=== PATIENT | female | born 1965 | race African-American/Black ===

== ENCOUNTER 2016-09-07 00:59 | Emergency (ER) | payer MEDICAID ==
[2015-06-11 06:09] VITALS: BMI 31.5
[~2016-09-07 00:59] MED LIST: LISINOPRIL10 MG PO; LOPRESSOR25 MG PO
== END 2016-09-07 02:59 | disposition home or self-care (01) ==
LOC: D.ER 00:59
DX: R10.2 Pelvic and perineal pain (principal); Z86.73 Personal history of transient ischemic attack (TIA), and cerebral infarction without residual deficits; I10 Essential (primary) hypertension

== ENCOUNTER 2016-09-30 16:40 | Observation (INO) | payer MEDICAID ==
[~2016-09-30] VITALS: Ht 170.2 cm; Wt 93.3 kg
[2016-09-30 17:42] LABS: BASOPHILS 0.4 % (0.0-2.0); EOSINOPHILS 0.9 % (0-7); HEMATOCRIT 42.9 % (36.0-48.0); HEMOGLOBIN 14.1 g/dL (12-16); IMMATURE GRANULOCYTES 0.4 % (0-5); LYMPHOCYTES 43.8 % (15-50); MCH 29.8 pg (26.0-34.0); MCHC 32.9 g/dL (31.0-37.0); MCV 90.7 fL (80.0-100.0); MEAN PLATELET VOLUME 9.4 fL (7.4-10.4); MONOCYTES 7.2 % (2-11); NEUTROPHILS 47.3 % (40-80); PLATELET COUNT 247 10x3/uL (130-400); RBC 4.73 10x6/uL (4.00-5.40); RDW 13.7 % (11.5-14.5)
[2016-09-30 18:01] LABS: ALBUMIN 3.6 g/dL (3.4-5.0); ALKALINE PHOSPHATASE 57 U/L (46-116); ALT (SGPT) 26 U/L (10-68); BILIRUBIN - TOTAL 0.28 mg/dL (0.2-1.3); CALC OSMOLALITY 280 mosm/kg (275-300); CALCIUM 9.1 mg/dL (8.5-10.1); CARBON DIOXIDE 29.1 mmol/L (21.0-32.0); CHLORIDE - SERUM 102 mmol/L (98-107); CREATININE - SERUM 1.1 mg/dL (0.6-1.3); GLUCOSE 98 mg/dL (74-106); POTASSIUM - SERUM 3.1 mmol/L (3.5-5.1); PROTEIN - SERUM 7.1 g/dL (6.4-8.2); SODIUM 139 mmol/L (136-145); UREA NITROGEN 20 mg/dL (7-18); eGFR NON AFRICAN AMERICAN 56 mL/min (90-120)
[2016-09-30 18:17] LABS: CHOL - HDL RATIO 2.5 ratio (2.3-4.1); CHOLESTEROL, TOTAL 176 mg/dL (0-200); CKMB 1.1 U/L (0.0-3.6); CREATINE KINASE 152 UL (21-215); HDL CHOLESTEROL 70 mg/dL (32-96); TRIGLYCERIDE 507 mg/dL (30-200)
[2016-09-30 18:18] LABS: TROPONIN-I 0.104 ng/mL (0.000-0.060)
--- NOTE | 2016-09-30 22:30 | NUR ---
RECEIVED FROM ER VIA STRETCHER. ADMITTED TO DR SORENSEN WITH CHEST PAIN. ORIENTED TO ROOM. HER DAUGHTER IS AT BEDSIDE. TELEMETRY APPLIED ON PATIENT.
[2016-10-01 04:07] VITALS: BP 144/98; BMI 32.2
[2016-10-01 06:29] VITALS: BP 93/57
--- NOTE | 2016-10-01 07:30 | NUR ---
RECEIVED PT IN BED AAOX4 RESP UNLABORED DENIES ANY NEEDS OR DISCOMFORT NAD NOTED
[2016-10-01 08:32] VITALS: BP 152/105
[2016-10-01] MEDS ORDERED: LISINOPRIL10 MG PO (09:29)
[2016-10-01] MEDS ORDERED: HYDROCHLOROTHIA25 MG PO (09:29)
--- NOTE | 2016-10-01 10:00 | NUR ---
PT C/O OF PAIN STATES SHE NEEDS SOMETHING FOR PAIN EXPLAINED SHE WAS BEING DISCHARGED AND SHE WOULD HAVE TO STAY FOR 2 HOURS IF PAIN MED GIVEN STATED HER STATED SHE WANTED MORPHINE 4 MG GIVEN SIVP FOR C/O PAIN PT STATED HER DAUGHTER WANTS TO TALK TO DR SORENSEN CALLED [facility] WITH MESSAGE
--- NOTE | 2016-10-01 11:10 | NUR ---
DR SORENSEN HERE WENT TO PT'S ROOM
[2016-10-01 12:09] VITALS: Ht 170.2 cm; Wt 93.3 kg
--- NOTE | 2016-10-01 12:39 | NUR ---
REVIEWED DISCHARGE INSTRUCTIONS WITH PT AND DAUGHTER BOTH STATE UNDERSTANDING COPY GIVEN TO PT SALINE LOCK DCD TO RAC WITH 22 GA IV CATH INTACT PT DISCHARGED HOME IN STABLE CONDITION LEFT UNIT VIA W/C WITH ALL PERSONAL BELONGINGS
[2016-10-01 12:43] VITALS: BP 130/79
--- NOTE | 2016-10-03 10:09 | DS ---
PATIENT:BOWEN MELGAR :65 MEDICAL RECORD: [id number] DISCHARGE SUMMARY ADMISSION DATE: 09/30/16 DISCHARGE DATE: 10/01/16 DISCHARGE DIAGNOSES: 1. Hypertensive crisis. 2. Demand ischemia, cardiac due to hypertension. 3. Essential hypertension. HOSPITAL COURSE: Mrs. Melgar presents with chest pain and out of control hypertension. She has similar admission 1-1/2 years ago with normal cardiac catheterization. She was at that time started on lisinopril, hydrochlorothiazide. She has not been compliant with this. She was restarted on her lisinopril, hydrochlorothiazide. Her blood pressure decreased and was discharged home on this. She will follow up with [facility] in 1 month. TRANSINT:[id number] Voice Confirmation ID: [id number] DOCUMENT ID: [id number] JOSE SORENSEN MD at 1009 CC: [id number] DICTATION DATE: 10/01/16 1125 MUSIC JOURNALIST: 10/02/16 0053 DIS IN 10/01/16 [id number] [place] [address]
--- NOTE | 2016-10-03 10:09 | HP ---
PATIENT: BOWEN MELGAR MEDICAL RECORD: [id number] ACCOUNT: [id number] LOCATION:[address] : 65 ADMISSION DATE: 09/30/16 HISTORY AND PHYSICAL EXAMINATION DIAGNOSIS: Hypertension. HISTORY OF PRESENT ILLNESS: Mrs. Melgar presents with chest pain and hypertension, systolic blood pressure in the 190-200 range. She had a similar admission 1-1/2 years ago. She underwent cardiac catheterization at that time revealing smooth-walled vessels, normal LV function. It was felt to be demand ischemia from hypertension. She was placed on lisinopril and hydrochlorothiazide. She is no longer taking these medications. PHYSICAL EXAMINATION: GENERAL APPEARANCE: Well-nourished, well-developed, appears stated age. Level of distress, comfortable. PSYCHIATRIC: Mental status, alert, normal affect. Orientation, oriented to time, place and person. EYES: Lids and conjunctiva, noninjected. No discharge, no pallor. ENT: Lips, teeth, gums, normal dentition. Oropharynx, no cyanosis, no pallor. NECK: Carotid arteries, bilateral normal upstroke, no bruits, no thrills. JUGULAR VEINS: No jugular venous pressure or distention. CERVICAL LYMPH NODES: Nontender, nonenlarged. THYROID: Not enlarged. Nontender. No nodules. LUNGS: Respiratory effort, unlabored. CHEST: Normal curvature. No thoracic deformity. No chest wall tenderness. Percussion, resonant. Auscultation, clear. No wheezes, no rales, no rhonchi. CARDIOVASCULAR: Precordial exam, nondisplaced. No heaves or pericardial thrills. Rate and rhythm, regular. Heart sounds, normal S1, normal S2. No S3, no gallop, no rub. Systolic murmur, not heard. Diastolic murmur, not heard. EXTREMITIES: No cyanosis, no edema. Peripheral pulses, full and equal in all extremities, except as noted. No bruits appreciated. ABDOMEN: Soft, nondistended. Normal aorta. No bruit. Nontender. No masses. Liver, nontender, no hepatomegaly. Spleen, nontender, no splenomegaly. MUSCULOSKELETAL: No joint tenderness. No joint swelling. No erythema. NEUROLOGICAL: Normal gait, normal strength, normal tone. SKIN: Warm and dry. REVIEW OF SYSTEMS: The patient reports easy bruising but reports no swollen glands. The patient reports no fever, no night sweats, no significant weight gain, no significant weight loss. No significant exercise tolerance. The patient reports no dry eyes, no irritation, no vision change. Patient reports no difficulty hearing and no ear pain. Patient reports no frequent nose bleeds or nose and sinus problems. Patient reports on arm pain on exertion. No shortness of breath while lying down. No history of heart murmur. Patient reports no cough, no wheezing or coughing up blood. Patient reports no abdominal pain, no vomiting. Normal appetite. No diarrhea and not vomiting blood. No nausea and no constipation. Patient reports no incontinence. No difficulty urinating. No hematuria. No increased frequency. Patient reports no muscle aches. No weakness, no arthralgias, no back pain. No swelling of the extremities. Patient reports no abnormal mole, no jaundice, no rashes. Reports no loss of consciousness. No weakness and no numbness. No seizures, dizziness, or headaches. The patient reports no depression, no sleep disturbance, feeling safe in a relationship and no alcohol abuse. Patient reports on fatigue. HISTORY AND PHYSICAL [id number] BOWEN MELGAR Reports no runny nose or sinus pressure. No itching, no hives, and no frequent sneezing. OVERALL IMPRESSION: Chest pain secondary to hypertension, once again, with demand ischemia. We will restart her on lisinopril and hydrochlorothiazide and discharge home. TRANSINT:[id number] Voice Confirmation ID: [id number] DOCUMENT ID: [id number] JOSE SORENSEN MD at 1009 CC: [id number] DICTATION DATE: 10/01/16 1125 TIMBER TREATING TANK OPERATOR: 10/01/16 1518 DIS IN 10/01/16 [facility] [address] [place] [address]
== END 2016-10-01 12:39 | disposition home or self-care (01) ==
LOC: D.ER 16:40 → D.M2 19:41 → OBSVTIME 19:41 → D.M2 19:59
PROVIDERS: Emergency Medicine; ADMIT Internal Medicine Interventional Cardiology
DX: I16.9 Hypertensive crisis, unspecified (principal); I24.8 Other forms of acute ischemic heart disease

== ENCOUNTER 2017-01-26 18:05 | Emergency (ER) | payer SELFPAY ==
[2016-10-01 12:09] VITALS: BMI 32.2
[~2017-01-26 18:05] MED LIST changes: +HYDROCHLOROTHIA25 MG PO
== END 2017-01-26 21:36 | disposition home or self-care (01) ==
LOC: D.ER 18:05
DX: F41.9 Anxiety disorder, unspecified (principal); K21.9 Gastro-esophageal reflux disease without esophagitis; F17.200 Nicotine dependence, unspecified, uncomplicated